=== PATIENT | male | born 1990 | race Caucasian/White ===

== ENCOUNTER 2019-04-10 02:12 | Emergency (ER) | payer SELFPAY ==
[2019-04-10] MEDS ORDERED: BACIGUENT PACKET TP ONE (02:36)
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
[2019-04-10] MEDS ORDERED: BACIGUENT PACKET ONE (02:46)
[2019-04-10 03:16] VITALS: BP 140/80; PULSE 98
[2019-04-10 04:00] VITALS: O2SAT 100
[2019-04-10 04:09] LABS: Amphetamine,Urine NEGATIVE (NEGATIVE); Barbiturate,Urine NEGATIVE (NEGATIVE); Benzodiazepine,Urine NEGATIVE (NEGATIVE); Cocaine,Urine NEGATIVE (NEGATIVE); Methadone,Urine NEGATIVE (NEGATIVE); Opiate,Urine NEGATIVE (NEGATIVE); PCP,Urine NEGATIVE (NEGATIVE); THC,Urine NEGATIVE (NEGATIVE)
== END 2019-04-10 04:21 | disposition home or self-care (01) ==
LOC: ED 02:12
DX: Z02.89 Encounter for other administrative examinations (principal); Y90.6 Blood alcohol level of 120-199 mg/100 ml; Y04.0XXA Assault by unarmed brawl or fight, initial encounter; S80.212A Abrasion, left knee, initial encounter; S80.211A Abrasion, right knee, initial encounter; S00.93XA Contusion of unspecified part of head, initial encounter; S51.012A Laceration without foreign body of left elbow, initial encounter; S90.811A Abrasion, right foot, initial encounter
CPT/HCPCS: 36415; 80307; 93005; 99284; A9270-GY; G0480